=== PATIENT | female | born 1985 | race Caucasian/White ===

== ENCOUNTER 2019-12-30 11:56 | Emergency (ER) | payer MEDICAID ==
[~2019-12-30] VITALS: Ht 165.1 cm; Wt 65.0 kg
[2019-12-30 12:00] VITALS: BP 103/52
[2019-12-30] MEDS ORDERED: ACETAMINOPHEN 325MG TABLET ONE (12:26)
[2019-12-30] MEDS ORDERED: ONDANSETRON 4MG ODT PO STA (12:47)
[2019-12-30] MEDS ORDERED: ACETAMINOPHEN 650MG/20.3ML UDC PO ONE (13:00)
== END 2019-12-30 14:13 | disposition left against medical advice (07) ==
LOC: ER 11:56
DX: R10.9 Unspecified abdominal pain (principal); R06.00 Dyspnea, unspecified; R42 Dizziness and giddiness
CPT/HCPCS: 99281

== ENCOUNTER 2020-05-30 15:27 | Inpatient (IN) | payer MEDICAID ==
[~2020-05-30] VITALS: Ht 160 cm; Wt 108.5 kg
[2020-05-30] VITALS (19 sets, daily range): BP systolic 126–217; BP diastolic 60–211
[2020-05-30] MEDS ORDERED: LACTATED RINGERS 1,000 ML IV SCH (15:59)
[2020-05-30] MEDS ORDERED: RHO(D) IMMUNE GLOBULIN 300 MCG/SYR IM PRN (16:00)
[2020-05-30] MEDS ORDERED: PENICILLIN G POTASSIUM 5 MMU in DEXT 5% WATER 100 ML IV NR (16:00)
[2020-05-30] MEDS ORDERED: BUTORPHANOL TARTRATE 2 MG/ML VIAL IV PRN (16:00)
[2020-05-30] MEDS ORDERED: MAGNESIUM 4 G PREMIX 100 ML IV NR (16:15)
[2020-05-30] MEDS ORDERED: MAGNESIUM 2 G PREMIX 50 ML IV NR (16:15)
[2020-05-30] MEDS ORDERED: EPINEPHRINE 0.1MG/ML (1:10,000) 10ML SYR ONE (17:00)
[2020-05-30] MEDS ORDERED: DEXTROSE 50% WATER 50ML SYRINGE IV ONE (17:00)
[2020-05-30] MEDS ORDERED: CALCIUM CHLORIDE 1GM/10ML SYR IV ONE (17:00)
[2020-05-30] MEDS ORDERED: BETAMETHASONE ACET/BETAMET 30 MG/5 ML VIAL IM SCH (17:00)
[2020-05-30] MEDS ORDERED: SODIUM BICARBONATE 8.4% 1 MEQ/ML 50ML SYR IV ONE (17:00)
[2020-05-30] MEDS ORDERED: PHENYLEPHRINE HCL 10 MG/ML 1ML (IV VIAL) IV ONE (17:08)
[2020-05-30] MEDS ORDERED: OXYTOCIN 10 UNITS/ML 1ML ONE (17:08)
[2020-05-30] MEDS ORDERED: CEFAZOLIN SODIUM 1000MG/VIAL ONE (17:08)
[2020-05-30] MEDS ORDERED: ONDANSETRON HCL 4MG/2ML INJ ONE (17:08)
[2020-05-30] MEDS ORDERED: METOCLOPRAMIDE HCL 10MG/2ML VIAL ONE (17:08)
[2020-05-30] MEDS ORDERED: SODIUM CHLORIDE 0.9% 10ML VIAL ONE (17:08)
[2020-05-30] MEDS ORDERED: EPHEDRINE SULFATE 50MG/ML VIAL ONE (17:12)
[2020-05-30 17:34] LABS: CHLORIDE 112 mEq/L (98-107)
[2020-05-30 17:35] LABS: CLARITY URINE CLOUDY (CLEAR); COLOR URINE DARK YELLOW (YELLOW); KETONES URINE NEGATIVE (NEGATIVE); LEUKOCYTE ESTERASE URINE NEGATIVE (NEGATIVE); NITRITE URINE NEGATIVE (NEGATIVE); OCCULT BLOOD URINE 1+ (NEGATIVE); PROTEIN URINE 4+ (NEGATIVE); SPECIFIC GRAVITY URINE 1.028 (1.005-1.030)
[2020-05-30 17:40] LABS: INR 1.5; PARTIAL THROMBOPLASTIN TIME 32.1 sec (23.4-31.0); PROTHROMBIN TIME 15.2 sec (9.6-11.0)
[2020-05-30 17:42] LABS: BG CARBOXYHEMOGLOBIN 0.6 % (0.5-1.5); BG DEOXYHEMOGLOBIN 5.6 % (0.0-5.0); BG HCO3 ACT 11.7 mmol/L (22.0-26.0); BG METHEMOGLOBIN 0.7 % (0.0-1.5); BG OXYGEN SATURATION 94.3 % (92.0-98.5); BG OXYHEMOGLOBIN 93.1 % (94.0-97.0); BG PCO2 22.5 mmHg (35.0-45.0); BG PH 7.334 (7.350-7.450); BG PO2 83.4 mmHg (75.0-100.0); BG SAMPLE SITE RIGHT BRACHIAL; BG TOTAL HEMOGLOBIN 5.5 g/dL (12.0-18.0); BG VENT MODE MASK - SIMPLE
[2020-05-30] MEDS ORDERED: PROPOFOL 200MG/20ML VIAL IV ONE (17:44)
[2020-05-30 17:47] LABS: BASOPHILS % 0.8 % (0.0-2.0); LYMPHOCYTES % 20.4 % (20.0-50.0); MEAN CORPUSCULAR HEMOGLOBIN 12.8 pg (28.0-32.0); MEAN CORPUSCULAR VOLUME 52.1 fL (81.0-99.0); MEAN PLATELET VOLUME 8.6 fl (7.4-10.4); NEUTROPHILS % 72.8 % (40.0-76.0); PLATELET 496 x1000/uL (130-400); RED BLOOD CELL COUNT 3.59 mill/uL (4.2-5.4); RED CELL DISTRIBUTION WIDTH 24.3 % (11.6-14.6)
[2020-05-30 17:48] LABS: *BARBITURATES SCREEN URINE NEGATIVE (NEGATIVE); *BENZODIAZEPINES SCREEN URINE NEGATIVE (NEGATIVE); *COCAINE SCREEN URINE NEGATIVE (NEGATIVE)
[2020-05-30 17:49] LABS: CANNABINOID URINE SCREEN NEGATIVE (NEGATIVE); METHADONE URINE SCREEN NEGATIVE (NEGATIVE); OPIATES URINE SCREEN NEGATIVE (NEGATIVE); PHENCYCLIDINE URINE SCREEN NEGATIVE (NEGATIVE)
[2020-05-30 17:52] LABS: *AMPHETAMINES SCREEN URINE PRESUMTIVE POSITIVE (NEGATIVE)
[2020-05-30 17:57] LABS: HEMATOCRIT. 18.7 % (36.0-48.0); HEMOGLOBIN. 4.6 g/dL (12.0-16.0)
[2020-05-30 18:08] LABS: HEPATITIS B SURFACE ANTIGEN NEGATIVE
[2020-05-30 18:22] LABS: PLATELET ESTIMATE INCREASED
[2020-05-30] MEDS ORDERED: SUCCINYLCHOLINE CHLORIDE 200MG/10ML IV ONE (18:28)
[2020-05-30] MEDS ORDERED: FENTANYL CITRATE/PF 50MCG/ML 2ML VIAL ONE (18:29)
[2020-05-30] MEDS ORDERED: ETOMIDATE 2MG/ML 10ML VIAL IV ONE (19:45)
[2020-05-30] MEDS ORDERED: ROCURONIUM BROMIDE 10MG/ML VIAL 5ML IV ONE ×2 (19:45→20:26)
[2020-05-30] MEDS ORDERED: PENICILLIN G POTASSIUM 2.5 MMU in DEXTROSE 5% WATER 50 ML IV SCH (20:00)
[2020-05-30 20:45] LABS: BG BASE EXCESS -24.6 mmol/L (-2.0-2.0); BG CARBOXYHEMOGLOBIN 0.5 % (0.5-1.5); BG DEOXYHEMOGLOBIN 7.8 % (0.0-5.0); BG FRACTION INSPIRED OXYGEN 100; BG HCO3 ACT 8.8 mmol/L (22.0-26.0); BG METHEMOGLOBIN 0.8 % (0.0-1.5); BG OXYGEN SATURATION 92.1 % (92.0-98.5); BG OXYHEMOGLOBIN 90.9 % (94.0-97.0); BG PCO2 63.4 mmHg (35.0-45.0); BG PO2 111.8 mmHg (75.0-100.0); BG SAMPLE SITE ALINE; BG TOTAL HEMOGLOBIN 6.8 g/dL (12.0-18.0); BG VENT MODE VENT - AC
[2020-05-30] MEDS ORDERED: SODIUM BICARBONATE 8.4% 1 MEQ/ML 50ML SYR IV NR ×2 (21:00→23:15)
[2020-05-30] MEDS: SODIUM BICARBONATE 150 MEQ in DEXTROSE 5% WATER 1,000 ML IV SCH (22:34)
[2020-05-30 23:04] LABS: BG CARBOXYHEMOGLOBIN 0.2 % (0.5-1.5); BG DEOXYHEMOGLOBIN 1.9 % (0.0-5.0); BG FRACTION INSPIRED OXYGEN 100; BG HCO3 ACT 12.8 mmol/L (22.0-26.0); BG METHEMOGLOBIN 0.5 % (0.0-1.5); BG OXYGEN SATURATION 98.1 % (92.0-98.5); BG OXYHEMOGLOBIN 97.4 % (94.0-97.0); BG PCO2 46.4 mmHg (35.0-45.0); BG PO2 139.8 mmHg (75.0-100.0); BG SAMPLE SITE ALINE; BG VENT MODE VENT - AC
[2020-05-31] VITALS (79 sets, daily range): BP systolic 144–256; BP diastolic 85–252
[2020-05-31 01:55] LABS: HEMATOCRIT 35.5 % (36.0-48.0); MEAN CORPUSCULAR HEMOGLOBIN 22.1 pg (28.0-32.0); MEAN CORPUSCULAR VOLUME 70.9 fL (81.0-99.0); PLATELET 201 x1000/uL (130-400); RED CELL DISTRIBUTION WIDTH 34.5 % (11.6-14.6)
[2020-05-31 02:03] LABS: PHOSPHORUS 7.6 mg/dL (2.5-4.9)
[2020-05-31] MEDS ORDERED: PIPERACILLIN/TAZOBACTAM 2.25 G in DEXTROSE 5% WATER 50 ML IV SCH (02:15)
[2020-05-31] MEDS ORDERED: LACTATED RINGERS 1,000 ML IV SCH (03:00)
[2020-05-31] MEDS ORDERED: PIPERACILLIN/TAZOBACTAM 3.375 G in DEXT 5% WATER 100 ML IV SCH (04:00)
[2020-05-31 05:26] LABS: BG BASE EXCESS -4.4 mmol/L (-2.0-2.0); BG CARBOXYHEMOGLOBIN 0.4 % (0.5-1.5); BG DEOXYHEMOGLOBIN 0.5 % (0.0-5.0); BG FRACTION INSPIRED OXYGEN 100; BG HCO3 ACT 17.3 mmol/L (22.0-26.0); BG METHEMOGLOBIN 0.6 % (0.0-1.5); BG OXYGEN SATURATION 99.5 % (92.0-98.5); BG OXYHEMOGLOBIN 98.5 % (94.0-97.0); BG PCO2 23.2 mmHg (35.0-45.0); BG PH 7.491 (7.350-7.450); BG PO2 475.7 mmHg (75.0-100.0); BG SAMPLE SITE ALINE; BG TOTAL HEMOGLOBIN 11.4 g/dL (12.0-18.0); BG VENT MODE VENT - AC
[2020-05-31] MEDS: PROPOFOL 10MG/ML 100ML 100 ML IV PRN ×4 (06:19→23:17)
[2020-05-31] MEDS ORDERED: FENTANYL CITRATE/PF 500 MCG in SODIUM CHLORIDE 0.9% 40 ML IV PRN (09:00)
[2020-05-31] MEDS ORDERED: DEXT 5%/0.45% NACL 1000ML 1,000 ML IV SCH (09:00)
[2020-05-31] MEDS ORDERED: IPRATROPIUM/ALBUTEROL 0.5-3(2.5)MG/3ML NEB HHN PRN (09:15)
[2020-05-31] MEDS: FENTANYL CITRATE/PF 1,000 MCG in SODIUM CHLORIDE 0.9% 100 ML IV PRN ×4 (09:30→23:18)
[2020-05-31] MEDS: ACETYLCYSTEINE 100MG/ML 10% VIAL 4ML INH SCH (09:42)
[2020-05-31] MEDS: IPRATROPIUM/ALBUTEROL 0.5-3(2.5)MG/3ML NEB HHN SCH (09:42)
[2020-05-31] MEDS: SODIUM BICARBONATE 150 MEQ in DEXTROSE 5% WATER 1,000 ML IV SCH (09:55)
[2020-05-31 10:26] LABS: PHOSPHORUS 4.9 mg/dL (2.5-4.9)
[2020-05-31 10:31] LABS: CREATINE KINASE MB FRACTION 18.8 ng/mL (0.5-3.6)
[2020-05-31 10:41] LABS: T4 FREE 1.29 ng/dL (0.76-1.46)
[2020-05-31 11:57] LABS: BG BASE EXCESS -3.5 mmol/L (-2.0-2.0); BG CARBOXYHEMOGLOBIN 0.3 % (0.5-1.5); BG DEOXYHEMOGLOBIN 0.9 % (0.0-5.0); BG FRACTION INSPIRED OXYGEN 60; BG HCO3 ACT 18.9 mmol/L (22.0-26.0); BG METHEMOGLOBIN 0.4 % (0.0-1.5); BG OXYGEN SATURATION 99.1 % (92.0-98.5); BG OXYHEMOGLOBIN 98.4 % (94.0-97.0); BG PCO2 26.1 mmHg (35.0-45.0); BG PH 7.477 (7.350-7.450); BG PO2 222.7 mmHg (75.0-100.0); BG SAMPLE SITE ALINE; BG TOTAL HEMOGLOBIN 11.1 g/dL (12.0-18.0); BG VENT MODE PRVC
[2020-05-31] MEDS: PIPERACILLIN/TAZOBACTAM 3.375 G in DEXT 5% WATER 100 ML IV SCH ×2 (12:52→17:31)
[2020-05-31] MEDS: PANTOPRAZOLE SODIUM 40 MG/VIAL IV SCH ×2 (13:32→21:00)
[2020-05-31 14:41] LABS: D-DIMER 19.77 mg/L FEU (<0.50); INR 1.2; PARTIAL THROMBOPLASTIN TIME 31.3 sec (23.4-31.0); PROTHROMBIN TIME 12.7 sec (9.6-11.0)
[2020-05-31 15:10] LABS: HEPATITIS B SURFACE ANTIGEN NEGATIVE
[2020-05-31] MEDS: ACETAMINOPHEN 650MG/20.3ML UDC PO PRN (15:30)
[2020-05-31 15:40] LABS: HEPATITIS A AB IGM NEGATIVE (NEGATIVE)
[2020-05-31] MEDS: LEVETIRACETAM 500MG PREMIX 100 ML IV SCH (17:31)
[2020-05-31 18:23] LABS: TOTAL IRON BINDING CAPACITY 460 ug/dL (250-450)
[2020-05-31 18:56] LABS: FERRITIN 28 ng/mL (10-291)
[2020-05-31 19:06] LABS: VITAMIN B12 SERUM >2000 pg/mL pg/mL (211-911)
[2020-05-31] MEDS: SUCRALFATE 1 G/10 ML UDC NG SCH (19:21)
[2020-05-31 20:20] LABS: HEMATOCRIT 36.4 % (36.0-48.0); HEMOGLOBIN 11.3 g/dL (12.0-16.0)
[2020-06-01] VITALS (67 sets, daily range): BP systolic 141–167; BP diastolic 90–140
[2020-06-01] MEDS: PIPERACILLIN/TAZOBACTAM 3.375 G in DEXT 5% WATER 100 ML IV SCH ×3 (00:41→11:48)
[2020-06-01] MEDS: SUCRALFATE 1 G/10 ML UDC NG SCH ×5 (00:46→23:44)
[2020-06-01] MEDS: SODIUM BICARBONATE 150 MEQ in DEXTROSE 5% WATER 1,000 ML IV SCH (00:58)
[2020-06-01 01:05] LABS: HEMATOCRIT 35.8 % (36.0-48.0); HEMOGLOBIN 11.5 g/dL (12.0-16.0)
[2020-06-01] MEDS: ACETAMINOPHEN 650MG/20.3ML UDC PO PRN ×3 (02:12→17:34)
[2020-06-01] MEDS: FENTANYL CITRATE/PF 1,000 MCG in SODIUM CHLORIDE 0.9% 100 ML IV PRN ×4 (04:13→21:20)
[2020-06-01] MEDS: PROPOFOL 10MG/ML 100ML 100 ML IV PRN (05:34)
[2020-06-01 07:39] LABS: CHLORIDE 106 mEq/L (98-107)
[2020-06-01 08:07] LABS: D-DIMER 7.52 mg/L FEU (<0.50); INR 1.2
[2020-06-01 08:08] LABS: HEMATOCRIT. 34.8 % (36.0-48.0); HEMOGLOBIN. 10.8 g/dL (12.0-16.0); MEAN CORPUSCULAR HEMOGLOBIN 21.7 pg (28.0-32.0); MEAN CORPUSCULAR VOLUME 69.5 fL (81.0-99.0); MEAN PLATELET VOLUME 8.8 fl (7.4-10.4); PLATELET 205 x1000/uL (130-400); RED CELL DISTRIBUTION WIDTH 35.8 % (11.6-14.6)
[2020-06-01 08:11] LABS: CREATINE KINASE 321 IU/L (26-192)
[2020-06-01] MEDS: LEVETIRACETAM 500MG PREMIX 100 ML IV SCH ×2 (09:01→20:20)
[2020-06-01] MEDS: DEXT 5%/0.45% NACL 1000ML 1,000 ML IV SCH (09:01)
[2020-06-01] MEDS: PANTOPRAZOLE SODIUM 40 MG/VIAL IV SCH ×2 (09:01→20:20)
[2020-06-01] MEDS: ACETYLCYSTEINE 100MG/ML 10% VIAL 4ML INH SCH ×3 (09:35→23:38)
[2020-06-01] MEDS: IPRATROPIUM/ALBUTEROL 0.5-3(2.5)MG/3ML NEB HHN SCH ×3 (09:35→23:39)
[2020-06-01 11:17] LABS: HEMOGLOBIN 10.7 g/dL (12.0-16.0)
[2020-06-01 13:29] LABS: NUCLEATED RED BLOOD CELLS 9 /100 WBC; PLATELET ESTIMATE NORMAL
[2020-06-01] MEDS ORDERED: HYDRALAZINE HCL 25MG TABLET PO SCH (14:00)
[2020-06-01] MEDS: DOXYCYCLINE 100 MG in DEXT 5% WATER 100 ML IV SCH (16:00)
[2020-06-01] MEDS: IRON SUCROSE COMPLEX 100 MG/5 ML ML IV SCH (16:01)
[2020-06-01] MEDS: PIPERACILLIN/TAZOBACTAM 2.25 G in DEXTROSE 5% WATER 50 ML IV SCH ×2 (17:05→23:44)
[2020-06-01] MEDS ORDERED: MIDAZOLAM HCL 100 MG in DEXT 5% WATER 80 ML IV PRN (18:00)
[2020-06-01] MEDS ORDERED: AMLODIPINE 5MG TABLET PO NR (20:57)
[2020-06-01] MEDS ORDERED: LABETALOL 5MG/ML SYR 20 MG/4 ML SYRINGE IV PRN (20:57)
[2020-06-01] MEDS: HYDRALAZINE HCL 50MG TABLET PO SCH (21:18)
[2020-06-02] VITALS (86 sets, daily range): BP systolic 124–259; BP diastolic 73–248
[2020-06-02] MEDS: FENTANYL CITRATE/PF 1,000 MCG in SODIUM CHLORIDE 0.9% 100 ML IV PRN ×2 (02:18→08:49)
[2020-06-02] MEDS: DOXYCYCLINE 100 MG in DEXT 5% WATER 100 ML IV SCH ×2 (03:03→16:10)
[2020-06-02 04:07] LABS: HIV SCREEN 4G Non Reactive (Non Reactive)
[2020-06-02] MEDS: PIPERACILLIN/TAZOBACTAM 2.25 G in DEXTROSE 5% WATER 50 ML IV SCH ×3 (05:19→17:49)
[2020-06-02] MEDS: SUCRALFATE 1 G/10 ML UDC NG SCH ×3 (05:20→17:49)
[2020-06-02] MEDS: DEXT 5%/0.45% NACL 1000ML 1,000 ML IV SCH (05:20)
[2020-06-02] MEDS: HYDRALAZINE HCL 50MG TABLET PO SCH ×3 (05:20→21:35)
[2020-06-02 05:59] LABS: BASOPHILS % 0.4 % (0.0-2.0); EOSINOPHILS % 0.1 % (0.0-5.0); HEMATOCRIT. 31.3 % (36.0-48.0); MEAN CORPUSCULAR HEMOGLOBIN 22.1 pg (28.0-32.0); MEAN CORPUSCULAR VOLUME 69.6 fL (81.0-99.0); MEAN PLATELET VOLUME 8.5 fl (7.4-10.4); MONOCYTES % 6.2 % (2.0-8.0); NEUTROPHILS % 83.3 % (40.0-76.0); PLATELET 149 x1000/uL (130-400); RED CELL DISTRIBUTION WIDTH 35.9 % (11.6-14.6)
[2020-06-02] MEDS: ACETYLCYSTEINE 100MG/ML 10% VIAL 4ML INH SCH (08:25)
[2020-06-02] MEDS: IPRATROPIUM/ALBUTEROL 0.5-3(2.5)MG/3ML NEB HHN SCH ×3 (08:25→20:14)
[2020-06-02] MEDS: AMLODIPINE 5MG TABLET PO SCH (08:35)
[2020-06-02] MEDS: LEVETIRACETAM 500MG PREMIX 100 ML IV SCH ×2 (08:35→21:35)
[2020-06-02] MEDS: PANTOPRAZOLE SODIUM 40 MG/VIAL IV SCH ×2 (08:35→21:35)
[2020-06-02 09:28] LABS: BG CARBOXYHEMOGLOBIN 0.3 % (0.5-1.5); BG DEOXYHEMOGLOBIN 1.4 % (0.0-5.0); BG FRACTION INSPIRED OXYGEN 45; BG METHEMOGLOBIN 0.5 % (0.0-1.5); BG OXYGEN SATURATION 98.6 % (92.0-98.5); BG OXYHEMOGLOBIN 97.8 % (94.0-97.0); BG PCO2 31.6 mmHg (35.0-45.0); BG PO2 146.8 mmHg (75.0-100.0); BG TOTAL HEMOGLOBIN 9.9 g/dL (12.0-18.0); BG VENT MODE VENT - PRVC
[2020-06-02 09:45] LABS: BG SAMPLE SITE ALINE
[2020-06-02] MEDS: IRON SUCROSE COMPLEX 100 MG/5 ML ML IV SCH (16:09)
[2020-06-02] MEDS: ACETAMINOPHEN 650MG/20.3ML UDC PO PRN (16:10)
[2020-06-03] VITALS (53 sets, daily range): BP systolic 109–280; BP diastolic 27–279
[2020-06-03] MEDS: PIPERACILLIN/TAZOBACTAM 2.25 G in DEXTROSE 5% WATER 50 ML IV SCH ×3 (00:02→12:20)
[2020-06-03] MEDS: SUCRALFATE 1 G/10 ML UDC NG SCH ×3 (00:02→12:20)
[2020-06-03] MEDS: DEXT 5%/0.45% NACL 1000ML 1,000 ML IV SCH (00:03)
[2020-06-03] MEDS: IPRATROPIUM/ALBUTEROL 0.5-3(2.5)MG/3ML NEB HHN SCH ×3 (02:14→14:03)
[2020-06-03] MEDS: ACETYLCYSTEINE 100MG/ML 10% VIAL 4ML INH SCH ×2 (02:14→14:03)
[2020-06-03] MEDS: DOXYCYCLINE 100 MG in DEXT 5% WATER 100 ML IV SCH (04:13)
[2020-06-03 06:23] LABS: HEMATOCRIT. 30.1 % (36.0-48.0); HEMOGLOBIN. 9.6 g/dL (12.0-16.0); LYMPHOCYTES % 10.1 % (20.0-50.0); MEAN CORPUSCULAR HEMOGLOBIN 22.3 pg (28.0-32.0); MEAN CORPUSCULAR VOLUME 70.2 fL (81.0-99.0); MEAN PLATELET VOLUME 9.1 fl (7.4-10.4); NEUTROPHILS % 82.9 % (40.0-76.0); PLATELET 148 x1000/uL (130-400); RED CELL DISTRIBUTION WIDTH 35.9 % (11.6-14.6)
[2020-06-03] MEDS: HYDRALAZINE HCL 50MG TABLET PO SCH (06:25)
[2020-06-03] MEDS: ACETAMINOPHEN 650MG/20.3ML UDC PO PRN (06:25)
[2020-06-03] MEDS: PANTOPRAZOLE SODIUM 40 MG/VIAL IV SCH (08:30)
[2020-06-03] MEDS: AMLODIPINE 5MG TABLET PO SCH (08:30)
[2020-06-03] MEDS: LEVETIRACETAM 500MG PREMIX 100 ML IV SCH (08:31)
[2020-06-03 08:54] LABS: BG BASE EXCESS -6.6 mmol/L (-2.0-2.0); BG CARBOXYHEMOGLOBIN 0.2 % (0.5-1.5); BG DEOXYHEMOGLOBIN 1.1 % (0.0-5.0); BG FRACTION INSPIRED OXYGEN 45; BG HCO3 ACT 16.9 mmol/L (22.0-26.0); BG METHEMOGLOBIN 0.6 % (0.0-1.5); BG OXYGEN SATURATION 98.9 % (92.0-98.5); BG OXYHEMOGLOBIN 98.1 % (94.0-97.0); BG PCO2 26.3 mmHg (35.0-45.0); BG PH 7.425 (7.350-7.450); BG PO2 181.8 mmHg (75.0-100.0); BG SAMPLE SITE ALINE; BG TOTAL HEMOGLOBIN 8.3 g/dL (12.0-18.0); BG VENT MODE VENT - PRVC
[2020-06-03] MEDS ORDERED: VANCOMYCIN 2,000 MG in DEXT 5% WATER 500 ML IV NR (14:00)
[2020-06-03] MEDS: MORPHINE SULFATE 250 MG in DEXT 5% WATER 240 ML IV PRN ×2 (14:49→20:38)
[2020-06-03] MEDS ORDERED: LORAZEPAM 2MG/ML CPJ IV PRN (20:15)
[2020-06-04] VITALS (16 sets, daily range): BP systolic 80–143; BP diastolic 53–77
[2020-06-04] MEDS: MORPHINE SULFATE 250 MG in DEXT 5% WATER 240 ML IV PRN (03:00)
[2020-06-06 15:06] LABS: AMPHETAMINE CONF URINE Positive (.)
== END 2020-06-04 09:47 | disposition expired | DRG 540 ==
LOC: OBSVTOIN 15:27 → 8 EST LDRP 15:27 → CVICU 21:14
PROVIDERS: ADMIT Obstetrics & Gynecology; ATTEND Internal Medicine
PROC: 30233K1 Transfusion of Nonautologous Frozen Plasma into Peripheral Vein, Percutaneous Approach (ICD-10-PCS; 2020-05-30)
PROC: 30233N1 Transfusion of Nonautologous Red Blood Cells into Peripheral Vein, Percutaneous Approach (ICD-10-PCS; 2020-05-30)
PROC: 5A1945Z Respiratory Ventilation, 24-96 Consecutive Hours (ICD-10-PCS; 2020-05-30)
PROC: 5A12012 Performance of Cardiac Output, Single, Manual (ICD-10-PCS; 2020-05-30)
PROC: 0BH17EZ Insertion of Endotracheal Airway into Trachea, Via Natural or Artificial Opening (ICD-10-PCS; 2020-05-30)
PROC: 10D00Z1 Extraction of Products of Conception, Low, Open Approach (ICD-10-PCS; principal; 2020-05-31)
PROC: 02H633Z Insertion of Infusion Device into Right Atrium, Percutaneous Approach (ICD-10-PCS; 2020-06-01)
PROC: 5A1D70Z Performance of Urinary Filtration, Intermittent, Less than 6 Hours Per Day (ICD-10-PCS; 2020-06-01)
PROC: 4A00X4Z Measurement of Central Nervous Electrical Activity, External Approach (ICD-10-PCS; 2020-06-02)
DX: O75.3 Other infection during labor (principal); O10.12 Pre-existing hypertensive heart disease complicating childbirth; J96.01 Acute respiratory failure with hypoxia; J69.0 Pneumonitis due to inhalation of food and vomit; N17.0 Acute kidney failure with tubular necrosis; R57.8 Other shock; E43 Unspecified severe protein-calorie malnutrition; I46.9 Cardiac arrest, cause unspecified; A41.89 Other specified sepsis; K72.00 Acute and subacute hepatic failure without coma; G93.1 Anoxic brain damage, not elsewhere classified; J68.0 Bronchitis and pneumonitis due to chemicals, gases, fumes and vapors; O99.02 Anemia complicating childbirth; O77.0 Labor and delivery complicated by meconium in amniotic fluid; Z66 Do not resuscitate; I50.21 Acute systolic (congestive) heart failure; K92.2 Gastrointestinal hemorrhage, unspecified; O25.2 Malnutrition in childbirth; O41.03X0 Oligohydramnios, third trimester, not applicable or unspecified; O32.2XX0 Maternal care for transverse and oblique lie, not applicable or unspecified; O99.52 Diseases of the respiratory system complicating childbirth; O99.334 Smoking (tobacco) complicating childbirth; O75.4 Other complications of obstetric surgery and procedures; O99.62 Diseases of the digestive system complicating childbirth; O26.62 Liver and biliary tract disorders in childbirth; O99.284 Endocrine, nutritional and metabolic diseases complicating childbirth; O99.12 Other diseases of the blood and blood-forming organs and certain disorders involving the immune mechanism complicating childbirth; O99.42 Diseases of the circulatory system complicating childbirth; O75.89 Other specified complications of labor and delivery; O99.354 Diseases of the nervous system complicating childbirth; O99.89 Other specified diseases and conditions complicating pregnancy, childbirth and the puerperium; O99.324 Drug use complicating childbirth; O76 Abnormality in fetal heart rate and rhythm complicating labor and delivery; I11.0 Hypertensive heart disease with heart failure; D50.9 Iron deficiency anemia, unspecified; I42.0 Dilated cardiomyopathy; M62.82 Rhabdomyolysis; E87.8 Other disorders of electrolyte and fluid balance, not elsewhere classified; D68.9 Coagulation defect, unspecified; F17.210 Nicotine dependence, cigarettes, uncomplicated; K76.89 Other specified diseases of liver; D64.9 Anemia, unspecified; F15.10 Other stimulant abuse, uncomplicated; G25.3 Myoclonus; E16.2 Hypoglycemia, unspecified; E87.2 Acidosis; Z3A.32 32 weeks gestation of pregnancy; Z37.0 Single live birth; Z86.19 Personal history of other infectious and parasitic diseases; Z20.828 Contact with and (suspected) exposure to other viral communicable diseases
CPT/HCPCS: 36415; 36600; 70551; 71045; 76705; 76770; 76805; 76818; 76937; 80048; 80053; 80076; 80305; 80307; 80359; 81003; 82140; 82375; 82550; 82553; 82607; 82728; 82746; 82805; 82962; 83540; 83550; 83605; 83735; 84100; 84145; 84439; 84443; 84478; 84481; 84484; 84550; 85014; 85018; 85025; 85027; 85379; 85384; 86703; 86705; 86709; 86762; 86803; 86850; 86900; 86920; 86927; 87070; 87340; 87389; 87426; 88307; 93005; 93306; 93970; 93971; 94002; 94003; 94640; 99281; C1752; C9113; J0330; J0595; J0690; J0702; J1953; J2274; J2370; J2405; J2540; J2543; J2704; J2765; J3010; J3370; J3475; J3490; J7050; J7060; J7070; J7608; P9016; P9017; P9021